=== PATIENT | male | born 1940 | race Caucasian/White ===

== ENCOUNTER 2016-08-08 08:11 | Day surgery (SDC) | payer BC ==
--- NOTE | ~2016-08-08 | EGD ---
EGD REPORT [facility] [address] [address] NAME: CHET ADAM : 36 STATUS : REG [facility]#: [id number] AGE: 76 ADM/REG DATE : 08/08/16 MR#: [id number] REPORT SERV DATE: 08/08/16 DICTATED BY: PRIYANK WALTER DATE: 08/08/16 REPORT STATUS : Draft TRANSCRIBED BY: [facility] DATE: 08/08/16 Endoscopy Center Patient Name: Chet Adam Date of : 1940 Attending MD: PRIYANK WALTER MD Procedure Date No Time: 08/08/2016 Procedure: Upper GI endoscopy Indications: Iron deficiency anemia, hx lymphoma and charles Referring MD: Atif PRICE Medicines: as per anesthesia Complications: No immediate complications. Procedure: After obtaining informed consent, the endoscope was passed under direct vision. Throughout the procedure, the patient's blood pressure, pulse, and oxygen saturations were monitored continuously. The GIF [id number] [id number] was introduced through the mouth, and advanced to the third part of duodenum. The upper GI endoscopy was accomplished without difficulty. The patient tolerated the procedure. Findings: The examined esophagus was normal. Localized mild inflammation characterized by erythema was found in the gastric antrum. Biopsies were taken with a cold forceps for histology. The cardia and gastric fundus were normal on retroflexion. The examined duodenum was normal. Biopsies were taken with a cold forceps for histology. Impression: - Normal esophagus. - Gastritis. Biopsied. - Normal examined duodenum. Biopsied. Recommendation: - Await pathology results. Procedure Code(s): --- Professional --- 60092, Esophagogastroduodenoscopy, flexible, transoral; with biopsy, single or multiple Diagnosis Code(s): --- Professional --- K29.70, Gastritis, unspecified, without bleeding D50.9, Iron deficiency anemia, unspecified CPT copyright 2013 [employer]. All rights reserved. EGD REPORT [facility] [address] [place] [address] [place]. [address] NAME: CHET ADAM : 36 STATUS : REG [facility]#: [id number] AGE: 76 ADM/REG DATE : 08/08/16 MR#: [id number] REPORT SERV DATE: 08/08/16 DICTATED BY: PRIYANK WALTER. DATE: 08/08/16 REPORT STATUS : Draft TRANSCRIBED BY: [employer] DATE: 08/08/16 The codes documented in this report are preliminary and upon debt collector review may be revised to meet current compliance requirements. PRIYANK WALTER MD 08/08/2016 10:46 AM This report has been signed electronically. Number of Addenda: 0 Note Initiated On: 08/08/2016 10:23 AM Scope Withdrawal Time 0 hours 0 minutes 0 seconds [address] [facility] [place] [address]
--- NOTE | ~2016-08-08 | EGD ---
EGD REPORT [facility] [address] [address] NAME: CHET ADAM : 36 STATUS : REG [facility]#: [id number] AGE: 76 ADM/REG DATE : 08/08/16 MR#: [id number] REPORT SERV DATE: 08/08/16 DICTATED BY: PRIYANK WALTER DATE: 08/08/16 REPORT STATUS : Draft TRANSCRIBED BY: [facility] DATE: 08/08/16 Endoscopy Center Patient Name: Chet Adam Date of : 1940 Attending MD: PRIYANK WALTER MD Procedure Date No Time: 08/08/2016 Procedure: Colonoscopy Indications: Iron deficiency anemia, Personal history of malignant neoplasm of the colon, hx lymphoma and charles Referring MD: Atif PRICE Medicines: as per anesthesia Complications: No immediate complications. Procedure: After I obtained informed consent, the scope was passed under direct vision. Throughout the procedure, the patient's blood pressure, pulse, and oxygen saturations were monitored continuously. The PCF [id number] was introduced through the anus and advanced to the ileocolonic anastomosis. The colonoscopy was performed without difficulty. The patient tolerated the procedure. The quality of the bowel preparation was adequate to identify polyps. Findings: The perianal and digital rectal examinations were normal. There was evidence of a prior end-to-side ileo-colonic anastomosis in the transverse colon. This was patent. This was characterized by healthy appearing mucosa. There was evidence of a prior end-to-end colo-colonic anastomosis in the sigmoid colon. This was patent. This was characterized by healthy appearing mucosa. This was traversed. A sessile polyp was found in the transverse colon. The polyp was 3 mm in size. The polyp was removed with a cold biopsy forceps. Resection and retrieval were complete. A few small and large-mouthed diverticula were found in the sigmoid colon. Impression: - Patent end-to-side ileo-colonic anastomosis. - Patent end-to-end colo-colonic anastomosis. - One 3 mm polyp in the transverse colon. Resected and retrieved. - Diverticulosis in the sigmoid colon. Recommendation: - Await pathology results. - Repeat colonoscopy for surveillance based on pathology results. EGD REPORT [address] [address] NAME: CHET ADAM : 38 STATUS : REG [facility]#: [id number] AGE: 76 ADM/REG DATE : 08/08/16 MR#: [id number] REPORT SERV DATE: 08/08/16 DICTATED BY: PRIYANK WALTER DATE: 08/08/16 REPORT STATUS : Draft TRANSCRIBED BY: [employer] DATE: 08/08/16 Procedure Code(s): --- Professional --- 45544, Colonoscopy, flexible, proximal to splenic flexure; with biopsy, single or multiple Diagnosis Code(s): --- Professional --- Z98.0, Intestinal bypass and anastomosis status D12.3, Benign neoplasm of transverse colon K57.30, Diverticulosis of large intestine without perforation or abscess without bleeding D50.9, Iron deficiency anemia, unspecified Z85.038, Personal history of other malignant neoplasm of large intestine CPT copyright 2013 [employer]. All rights reserved. The codes documented in this report are preliminary and upon credit balance specialist review may be revised to meet current compliance requirements. PRIYANK WALTER MD 08/08/2016 11:09 AM This report has been signed electronically. Number of Addenda: 0 Note Initiated On: 08/08/2016 10:20 AM Scope Withdrawal Time 0 hours 0 minutes 0 seconds [id number] [address]
[~2016-08-08 08:11] MED LIST: AMARYL4 PO; ASAB PO; BENTYL10 PO; CIP5 PO; CYANO1000T PO; DIABETA5 PO; ELIQUIS 5 MG TAB5 MG PO; FERROUS SULF325 M1 PO; FOLIC PO; FORTAMET500 MG PO; LEVOTHYROXIN50 MCG PO; LOP25 PO; MTX2.5 PO; NORCO1 TA1 PO; NORCO1 TA2 PO; PRED50B PO; PRILOSEC40 MG PO; ROXICET1 TAB OR; ULTRAM50 PO; VITAMIN D1000 UNI1 PO; Z300 PO; ZOCOR20 PO; ZOCOR40 PO; ZOFRAN8 PO
[2016-10-09] MEDS ORDERED: PRILOSEC40 MG PO (13:31)
== END 2016-08-08 23:59 | disposition home or self-care (01) ==
LOC: DMU 08:11
PROVIDERS: Internal Medicine Gastroenterology
PROC: 0DBL8ZZ Excision of Transverse Colon, Via Natural or Artificial Opening Endoscopic (ICD-10-PCS; 2016-08-08)
PROC: 0DB98ZX Excision of Duodenum, Via Natural or Artificial Opening Endoscopic, Diagnostic (ICD-10-PCS; principal; 2016-08-08 09:00)
PROC: 0DB68ZX Excision of Stomach, Via Natural or Artificial Opening Endoscopic, Diagnostic (ICD-10-PCS; 2016-08-08 09:00)
DX: D12.3 Benign neoplasm of transverse colon (principal); K29.50 Unspecified chronic gastritis without bleeding; K57.30 Diverticulosis of large intestine without perforation or abscess without bleeding; Z98.0 Intestinal bypass and anastomosis status; K57.92 Diverticulitis of intestine, part unspecified, without perforation or abscess without bleeding; K21.9 Gastro-esophageal reflux disease without esophagitis; D50.9 Iron deficiency anemia, unspecified; I10 Essential (primary) hypertension; I48.91 Unspecified atrial fibrillation; I73.9 Peripheral vascular disease, unspecified; E78.00 Pure hypercholesterolemia, unspecified; E11.9 Type 2 diabetes mellitus without complications; E03.9 Hypothyroidism, unspecified; M06.9 Rheumatoid arthritis, unspecified; Z96.652 Presence of left artificial knee joint; Z85.030 Personal history of malignant carcinoid tumor of large intestine; Z86.718 Personal history of other venous thrombosis and embolism; Z85.72 Personal history of non-Hodgkin lymphomas; Z87.891 Personal history of nicotine dependence; Z92.21 Personal history of antineoplastic chemotherapy; Z91.09 Other allergy status, other than to drugs and biological substances; Z89.511 Acquired absence of right leg below knee; Z96.1 Presence of intraocular lens; Z98.41 Cataract extraction status, right eye; Z98.42 Cataract extraction status, left eye; Z79.01 Long term (current) use of anticoagulants; Z79.84 Long term (current) use of oral hypoglycemic drugs; Z79.899 Other long term (current) drug therapy; Z98.890 Other specified postprocedural states
CPT/HCPCS: 82962; 88305

== ENCOUNTER 2016-10-11 07:09 | Inpatient (IN) | payer BC ==
[2016-10-10 09:29] LABS: BASOPHILS 0.2 %; BASOPHILS ABSOLUTE 0.01 10/3/uL (0.0-0.16); EOSINOPHILS 2.3 %; EOSINOPHILS ABSOLUTE 0.12 10/3/uL (0.0-0.53); HEMATOCRIT 30.7 % (40.0-51.0); IMMATURE GRANULOCYTES ABSOLUTE 0.05 10/3/uL (0.0-0.11); LYMPHOCYTES 7.8 %; LYMPHOCYTES ABSOLUTE 0.41 10/3/uL (0.67-4.30); MEAN PLATELET VOLUME 9.1 fL (9.2-13.0); MONOCYTES 4.6 %; MONOCYTES ABSOLUTE 0.24 10/3/uL (0.21-1.20); NEUTROPHILS 84.1 %; NEUTROPHILS ABSOLUTE 4.43 10/3/uL (2.02-8.40); RBC DISTRIBUTION WIDTH 14.7 % (12.0-16.0); RED CELL COUNT 3.69 10/6/uL (4.7-6.1); WHITE BLOOD CELLS 5.3 10/3/uL (4.5-10.5)
[2016-10-10 09:31] LABS: MEAN CORPUS HGB CONC 32.6 g/dL (32.0-36.0); MEAN CORPUSCULAR HEMOGLOB 27.1 pg (26.0-34.0); MEAN CORPUSCULAR VOLUME 83.2 fL (80-100)
[2016-10-10 09:32] LABS: MANUAL DIFF NO %; PLATELET COUNT 168 10/3/uL (150-400)
[2016-10-10 10:02] LABS: ALBUMIN 2.8 G/DL (3.5-5.0); ALKALINE PHOSPHATASE 236 U/L (45-117); BUN (BLOOD UREA NITROGEN) 25 MG/DL (6-23); CALCIUM, SERUM 8.4 MG/DL (8.5-10.4); CHLORIDE, SERUM 108 MMOL/L (96-112); CO2 (CARBON DIOXIDE) 24 MMOL/L (24-34); CREATININE 1.23 MG/DL (0.70-1.30); GFR AFRICAN AMERICAN 65 ML/MIN (>=60); GFR NON AFRICAN AMERICAN 56 ML/MIN (>=60); GLOBULIN 2.7 G/DL (2.5-4.1); GLUCOSE, SERUM 199 MG/DL (60-99); POTASSIUM, SERUM 5.1 MMOL/L (3.5-5.3); SGOT(AST) 22 U/L (5-40); SGPT(ALT) 17 U/L (5-65); SODIUM, SERUM 141 MMOL/L (135-148); TOTAL BILIRUBIN 0.3 MG/DL (0-1.2); TOTAL PROTEIN 5.5 G/DL (6.0-8.5)
--- NOTE | ~2016-10-11 | PREOPHP ---
PreOp History and Physical [address] [place]. 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 The patient complains of intermittent episodes of upper abdominal pain. These symptoms have been ongoing for at least two weeks. He describes nausea, vomiting, and pain in the right upper quadrant pain migrated to the back. 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 The patient comes now for open cholecystectomy. It was felt not to be a candidate for laparoscopic surgery because of the severity of disease and because of the high risk for complications based on this finding radiographically. It has been fully and completely explained to the patient that this is a high risk procedure with high risk for injury to the common bile duct or duodenum or duodenal fistula, which could be fatal. The patient is very symptomatic in terms of nausea and food intolerance and pain. He clearly understands the risks and agrees to surgery as planned. The patient has also had marked increased risk for complications and due to comorbid risk factors including diabetes, cardiac disease, and hypertension. Again, these increased risks have been explained to the patient. He understands and agrees to this as planned. PAST MEDICAL HISTORY: 1. History of T1 N0 M0 right colon cancer, status post open right colectomy performed 10/29/2013. 2. History of diverticulitis in the past. 3. 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 4. History of right lower extremity sarcoma. 5. History of right AKA. 6. History deep venous thrombosis of the left lower extremity. 7. Hypertension. 8. Non-insulin dependent diabetes mellitus. 9. Atrial flutter. ALLERGIES: NONE. MEDICATIONS: Eliquis, levothyroxine, metformin, metoprolol, simvastatin, Prilosec. SOCIAL HISTORY: The patient lives in [place], [place]. He is retired. He is . He has a previous history of tobacco abuse for 20 years. He has a history of alcohol use. FAMILY HISTORY: Positive for diabetes and cancer. REVIEW OF SYSTEMS: The patient complains of nausea, vomiting, easy bruising and weight loss and urinary incontinence. He also complains of cough and shortness of breath. He has a pulmonary cavitary lesion of concern for malignancy and workup regarding this is pending. PHYSICAL EXAMINATION: GENERAL: This is a chronically ill-appearing male, in no acute distress. He is alert PreOp History and Physical [address] [address] NAME: CHET PARRA : 38 STATUS : PRE IN [facility]#: [id number] AGE: 76 ADM/REG DATE : MR#: [id number] REPORT SERV DATE: 10/11/16 DICTATED BY: ATIF MAYNARD III DATE: 10/07/16 REPORT STATUS : Draft TRANSCRIBED BY: SUJIT DATE: 10/07/16 oriented x3. VITAL SIGNS: Blood pressure 125/77, pulse 87, temperature 97.3. HEENT: Unremarkable. Cranial nerves 2 through 12 are normal. LUNGS: Clear. CARDIAC: Normal. ABDOMEN: Soft with a prior right subcostal and midline incision. Exam is otherwise unremarkable. EXTREMITIES: Remarkable for right above knee amputation. LABORATORY DATA: CT scan of the abdomen shows the gallbladder to be multi-septated and dilated and inseparable from the second portion duodenal which is diffusely thickened. There is noted to be a previously calcified gallstone in the gallbladder lumen seen in 05/2016, which now lies in the second portion duodenal suggesting a fistula. The findings are suspicious for Mirizzi syndrome with the gallbladder eroding into the second portion of the duodenum. There is noted to be inflammatory stranding in the second portion of the duodenum and Morison pouch. There is noted to be a small amount of free fluid in the perihepatic space and Morison pouch. Previous right hemicolectomy with ileocolonic anastomosis was noted. These findings were all concern for Mirizzi syndrome without small- bowel obstruction or biliary obstruction. ASSESSMENT: 1. 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 2. History of tobacco abuse. 3. Probable primary lung cancer, workup pending. 4. Hypertension. 5. Non-insulin dependent diabetes mellitus. 6. Atrial flutter requiring anticoagulation. 7. History of deep venous thrombosis of the left lower extremity. 8. 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 9. History of a previous right colon cancer, status post previous open right colectomy. 10.History of diverticulitis. 11.History of lymphoma, which the patient has received chemotherapy. 12.Chronic anticoagulation for atrial fibrillation and deep venous thrombosis. PLAN: The patient comes to the operating room now for open cholecystectomy. It was felt that a laparoscopic procedure could not be safely performed and is clearly not indicated. Regarding the procedure, open cholecystectomy with repair of the duodenal fistula, the risks, benefits, and alternatives, including but not limited to the risk for bleeding, infection, common bile duct injury, bile leak, retained common bile stone, persistent duodenal fistula, recurrence of the fistula, and possible need for small bowel anastomosis to the duodenum and unforeseen complications including deep venous thrombosis, pulmonary embolus, myocardial infarction, stroke, pneumonia, anesthetic complications, prolonged ventilator dependency, and , have been fully and completely the patient's family at PreOp History and Physical [address] [address] NAME: CHET PARRA : 36 STATUS : PRE IN [facility]#: [id number] AGE: 76 ADM/REG DATE : MR#: [id number] REPORT SERV DATE: 10/11/16 DICTATED BY: ATIF MAYNARD III DATE: 10/07/16 REPORT STATUS : Draft TRANSCRIBED BY: MODL DATE: 10/07/16 length prior to surgery. The fact that this is a major operation with high risk for morbidity and mortality in this setting has been explained. The fact that this procedure will be extremely difficult technically because of the presence of a cholecystoduodenal fistula and because of inflammatory changes around the duodenum which may make closure of the duodenum difficult if not possible with high risk for leakage or anastomotic leak has been explained. Due to the patient's multiple medical problems and frail condition, possible increased risk for complications and have been fully and completely explained to the patient family at length. The option of nonoperative management offered to the patient. The patient but declined because of the severity of his symptoms. The fact that he will be at increased risk for thromboembolic complications while his Eliquis is held perioperatively has been explained as well as increased risk of bleeding because used this medication. The patient's questions have been answered. He clearly and fully understands the risks and agrees to surgery as planned. RHJ/MODL Atif Maynard III, M.D. / [id number]
--- NOTE | ~2016-10-11 | CN ---
Consultation Report [facility] [address] [place]. [address] NAME: CHET ADAM : 38 STATUS : ADM IN PAT#: [id number] AGE: 76 ADM/REG DATE : 10/11/16 MR#: [id number] REPORT SERV DATE: 10/15/16 DICTATED BY: TI CAMPBELL DATE: 10/15/16 REPORT STATUS : Draft TRANSCRIBED BY: MODL DATE: 10/15/16 INPATIENT CONSULTATION NOTE DATE OF CONSULTATION: 10/15/2016 REASON FOR CONSULTATION: Dysuria and frequency. HISTORY OF PRESENT ILLNESS: Mr. Adam is a 76-year-old white male, who has seen Dr. Wei Mcguire with [facility] in the past with a somewhat complicated past urologic history. 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 Additionally, he has BPH and has been treated with Flomax by his primary care physician for some time. He was admitted for cholelithiasis. A cholecystectomy could not be performed and he had a T-tube and PLACIDO placed instead. He had an intraoperative Garcia catheter placed on 10/11/2016, which has since been removed. Since that time, the patient developed dysuria and urinary frequency as well as every 15-30 minute nocturia, which is radically different from his pre-admission status. His home Flomax has not been restarted while he has been in the hospital. He denies any hematuria or pneumaturia at this time. Urology was consulted to assist with the management of this patient. PAST MEDICAL HISTORY: B-cell non-Hodgkin's lymphoma, atrial flutter, carotid artery disease, type 2 diabetes, hypertension, hypothyroidism, Kaposi sarcoma, mitral valve stenosis, and mixed hyperlipidemia. PAST SURGICAL HISTORY: As noted above. SOCIAL HISTORY: He does not smoke, drink alcohol, or use illicit drugs. ALLERGIES: ADHESIVE TAPE. HOME MEDICATIONS: Dicyclomine, Eliquis, levothyroxine, metformin, metoprolol, simvastatin, vitamin B12, and Flomax. REVIEW OF SYSTEMS: Thorough 13-point review of systems was performed by me, and if not noted be positive in the history of present illness or past medical history, are negative. PHYSICAL EXAMINATION: GENERAL: A well-appearing gentleman, in no distress. VITAL SIGNS: He is afebrile. Vital signs are stable. HEENT: Normocephalic, atraumatic. Eyes are anicteric. Nares are patent. Oropharynx is clear. NECK: Supple. Consultation Report [place] [address] [address] NAME: CHET ADAM : 38 STATUS : ADM IN [facility]#: [id number] AGE: 76 ADM/REG DATE : 10/11/16 MR#: [id number] REPORT SERV DATE: 10/15/16 DICTATED BY: TI CAMPBELL DATE: 10/15/16 REPORT STATUS : Draft TRANSCRIBED BY: SUJIT DATE: 10/15/16 HEART: Regular rate and rhythm. LUNGS: Clear. ABDOMEN: Soft. He has a T-tube and a PLACIDO draining appropriately. The abdomen is appropriately tender with no involuntary guarding or rebound. GENITOURINARY: Uncircumcised phallus. Glans clean. Meatus open. No masses on the shaft. Testicles descended bilaterally. No masses. Spermatic cord contents normal. Scrotal skin normal. INTEGUMENT: No rashes. MUSCULOSKELETAL: He has a right AKA. NEUROLOGIC: No focal deficits. PSYCHIATRIC: Pleasant and appropriate. LABS: Creatinine 0.89 on 10/12/2016. ASSESSMENT: A 76-year-old white gentleman with dysuria, frequency, and BPH. PLAN: I want to go ahead and send his urine for urinalysis, and culture and sensitivity. He is currently on Ancef since surgery. I will have the nursing staff obtain a bladder scan postvoid residual after his next void. Additionally, I am going to restart his Flomax. We will follow him closely. Dr. Mcguire will be back in the morning. My thanks to Dr. Cali for allowing me to participate in Mr. Adam' care. RAC/MODL Ti Campbell M.D. / [id number] CC: Atif Cali III, M.D. Atif Fallon MD
--- NOTE | ~2016-10-11 | DS ---
Discharge Summary [facility] [address] [place]. [address] NAME: CHET PARRA : 36 STATUS : DIS IN PAT#: [id number] AGE: 76 ADM/REG DATE : 10/11/16 MR#: [id number] REPORT SERV DATE: 10/26/16 DICTATED BY: LEONARD MAYNARD III DATE: 10/25/16 REPORT STATUS : Draft TRANSCRIBED BY: SUJIT DATE: 10/25/16 Data Collection from hospitalization DISCHARGE DIAGNOSES: 1. 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 2. Possible periduodenal malignancy associated with Mirizzi syndrome. 3. Cholecystoduodenal fistula - unresectable. 4. Enc-tzrigmo-ulqtevgql diabetes mellitus. 5. Hypertension. 6. History of colon cancer. 7. History of diverticulitis. 8. History of lymphoma of the spleen. 9. History of right lower extremity sarcoma. 10.History of right yhefc-scb-qdhd amputation. 11.Atrial flutter. 12.Former tobacco use. CONSULTATIONS: Trey Cavanaugh M.D. PROCEDURES PERFORMED: 1. Laparotomy, extensive lysis of adhesions and placement of cholecystostomy tube on 10/11/2016. 2. T-Tube cholangiogram on 10/13/2016. 3. CT-guided biopsy of right upper lobe lesion on 10/16/2016. PATHOLOGY: Lung, right upper lobe mass, CT-guided biopsy - high-grade large B-cell lymphoma, non-germinal center type (see comments). MEDICATIONS: Eliquis 5 mg twice a day, Bentyl 10 mg daily, Kincaid 7.5/325 one tablet every four hours as needed, levothyroxine 50 mcg every morning, Fortamet 500 mg every morning and 1000 mg with supper, Lopressor 25 mg daily, Prilosec 40 mg daily, Percocet 7.5/325 one tablet three times a day as needed, and Zocor 20 mg at bedtime. CONDITION AT DISCHARGE: Stable. DISPOSITION: The patient was discharged home on a low-cholesterol, 1800-calorie diabetic diet and no concentrated carbohydrates and activities as instructed. He would follow up with me on 10/25/2016. He would follow up with Dr. Wei Mcguire Jr., as instructed. 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 There was noted to be marked inflammatory process in the right upper quadrant. There appeared to be a stone within the lumen of the duodenum. The patient had several previous surgeries including right colectomy performed through a large open right subcostal incision. The patient has a history of sarcoma of the lower extremity requiring amputation and a history of lymphoma. Discharge Summary [place] [address] [place]. [address] NAME: CHET PARRA : 38 STATUS : DIS IN PAT#: [id number] AGE: 76 ADM/REG DATE : 10/11/16 MR#: [id number] REPORT SERV DATE: 10/26/16 DICTATED BY: LEONARD MAYNARD III DATE: 10/25/16 REPORT STATUS : Draft TRANSCRIBED BY: SUJIT DATE: 10/25/16 In addition, he had a recently discovered pulmonary mass of concern for malignancy. It was felt that open cholecystectomy with repair of the duodenal fistula was indicated. Treatment options were discussed and it was elected to proceed with surgical intervention. He was admitted to the hospital at this time for further evaluation and treatment. Upon admission, he was taken to the operating room where he underwent the above-mentioned procedure. He tolerated this well, and there were no complications. On postop day #1, he had no new complaints. He was alert and comfortable. The Garcia catheter was going to be removed. Full liquids were started. He was evaluated by Physical Therapy. On 10/13/2016, he said he was feeling better. He was afebrile. T-tube cholangiogram was performed. There was a small amount of contrast extravasating from the posterior lateral aspect of the gallbladder, and this did not appear to communicate with the other structures. The biliary tree was normal. On 10/14/2016, he had no new complaints. His diet was going to be advanced. IV fluids were stopped. The patient has a right upper lobe lesion, and it was felt that he should undergo a CT-guided biopsy. The following day, he was seen by Dr. Trey Cavanaugh regarding dysuria and frequency. A cholecystectomy could not be performed and he had T-tube and PLACIDO placed instead and intraoperative Garcia catheter was placed on 10/11/2016, which had since been removed. Since that time, the patient developed dysuria and urinary frequency as well as every 15- to 30-minute nocturia, which was radically different from his preadmission status. His Flomax had not been restarted while he was in the hospital. Urine was going to be sent for urinalysis, culture, and sensitivity. He was currently on Ancef since surgery. The nursing staff was going to obtain a bladder scan, postvoid residual after his next void, additionally Flomax would be restarted. Discharge planning was performed. On 10/16/2016, he felt well and wanted to go home. He was eating well. He underwent CT-guided biopsy of the right upper lobe lesion. This was malignant appearing. Discharge instructions were given. Due to his improved and stable condition, he was discharged home with the above- stated instructions. Information collected by: Patti Artis I submit the above information as my discharge summary. TG/SUJIT Leonard Maynard III, M.D. / [id number] CC: Amy Lloyd III, MD Ross A. Cohn, M.D.
--- NOTE | ~2016-10-11 | OP ---
Record Of Operation [facility] [address] [place]. 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 PROCEDURE: Laparotomy, extensive lysis of adhesions, placement of cholecystostomy tube. SURGEON: Leonard Maynard M.D. ANESTHESIA: General with intubation. COMPLICATIONS: None. ESTIMATED BLOOD LOSS: 100 mL. SPECIMENS: None. DRAINS: Cholecystostomy tube and Glenn-Mckenzie in the right upper quadrant and [place] in subcutaneous tissue. LAP AND SPONGE COUNT: Correct x3. 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 There is noted to be marked inflammatory process in the right upper quadrant. There appeared to be a stone within the lumen of the duodenum. The patient had several previous surgeries including right colectomy performed through a large open right subcostal incision. 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 In addition, he had a recently discovered pulmonary mass of concern for malignancy. It was felt that open cholecystectomy with repair of the duodenal fistula is indicated. I have explained to the patient and family at length that this would be a major operation with high risk for morbidity and mortality. The risk for bleeding, infection, enterotomy, injury to any abdominal structure, postop small bowel obstruction, ileus, incisional hernia or dehiscence, anastomotic leak, recurrence of the fistula or breakdown of the fistula repair, common bile duct injury, pancreatic injury, and unforeseen complications including deep venous thrombosis, pulmonary embolus, myocardial infarction, stroke, pneumonia, and , were fully and completely explained to the patient's family at length prior to surgery. The fact that this was a major operation with risk for major morbidity and mortality has been explained. The expected length of recovery was explained. The patient and family had Record Of Operation [facility] [address] [place]. [address] NAME: CHET PARRA : 38 STATUS : ADM IN PAT#: [id number] AGE: 76 ADM/REG DATE : 10/11/16 MR#: [id number] REPORT SERV DATE: 10/11/16 DICTATED BY: LEONARD MAYNARD III DATE: 10/11/16 REPORT STATUS : Draft TRANSCRIBED BY: SUJIT DATE: 10/11/16 questions which were answered. They understood the risks and agree to the surgery as planned. Based on the patient's prior surgery findings on CT scan the presence of a cholecystoduodenal fistula, I explained that I do not feel this could be performed safely laparoscopically. The patient and family had questions which were answered. They fully understood the risks and agree to surgery as planned. FINDINGS: The patient had a severe dense inflammatory process in the right upper quadrant. There was extensive edema around the gallbladder which was engulfed with adhesions to the omentum and to the duodenum. In the portal region, there was a firmness and hardness and not a discrete mass. This was of concern for possible posterior duodenal cancer or biliary cancer. There was extensive scarring in the area from the previous colectomy, entry into the area and definition of the structures are extremely difficult. We could not easily identify or define the portal structures. For this reason, it was my judgment that it was not safe to proceed with cholecystectomy and therefore, cholecystostomy tube was placed. I made this incision in light of the fact that the patient has a pulmonary mass which is in need of workup and which may be a life-limiting event for him. I felt that proceeding with attempt to removal of the gallbladder put place the patient at high risk for common bile duct injury requiring major reconstruction or possibly a duodenal fistula which might require major reconstruction. Based on these findings and considerations, given the fact that the patient had unworked up pulmonary mass most likely malignant, it was felt that cholecystostomy tube would temporize the patient in terms of infection and allow for interval cholecystectomy later, depending on his prognosis regarding the pulmonary mass. DESCRIPTION OF PROCEDURE: After being appropriately identified and after discussing risks of surgery with the patient and family again in the preoperative area, he was taken to the operating room and placed in the supine position on the operating room table. General anesthesia was administered and he was intubated without difficulty. A Garcia catheter was inserted. The abdomen was prepped and draped sterilely in usual fashion. After an appropriate "time-out" per JCAHO standards, a right subcostal incision was made about 2 cm below the costal margin, over the previous incision. The incision was continued through the subcutaneous tissue. The patient had marked bleeding and oozing from all of his tissues, apparently related to his anticoagulation. The incision was continued through the fascia. Hemostasis control with electrocautery was difficult secondary to marked oozing. We entered the abdominal cavity. There were dense adhesions between the omentum and the underside of the abdominal wall from the patient's previous surgery. It took a considerable amount of careful dissection to free up these adhesions so as to enter the right upper quadrant. There was an inflammatory process ongoing in the right upper quadrant with the initial structures extremely difficult to define and identify. The gallbladder was small and fibrotic and chronically inflamed. The omentum was densely adherent to it. The entire portal region was markedly distorted secondary to an inflammatory process. There was extensive edema in the portal tissues and a firmness and hardness in the duodenum. Using sharp dissection, the adhesions in the right upper quadrant were carefully divided. The gallbladder was exposed. The gallbladder chand were again thickened and chronically inflamed. We passed a 21-gauge needle into the gallbladder lumen and aspirated bile. This was done to be certain that this was the gallbladder. The structures and anatomy were extremely difficult to define because of the inflammatory changes and because the patient's previous surgery. Record Of Operation [facility] [address] [facility] [place]. [address] NAME: CHET PARRA : 38 STATUS : ADM IN PAT#: [id number] AGE: 76 ADM/REG DATE : 10/11/16 MR#: [id number] REPORT SERV DATE: 10/11/16 DICTATED BY: LEONARD MAYNARD III DATE: 10/11/16 REPORT STATUS : Draft TRANSCRIBED BY: MODL DATE: 10/11/16 Using sharp dissection, peritoneal reflection to the duodenum was divided along the line of [place]. Even doing this was very difficult secondary to marked firmness and edema of the tissues. There was a feeling of firmness and hardness in the retroperitoneum posterior to the second portion of the duodenum. This was not a discrete mass but rather hardness of concern for possible malignancy versus a chronic inflammatory process. We dissected from the top of the gallbladder down towards the portal region. This region in the chloe hepatis was extremely hard and fixed and firm. The portal region of the lower portion of the gallbladder, common bile duct, and duodenum were all fixed in one inflammatory mass. It was extremely difficult to define these structures and to proceed safely. It was my judgment that it would not be safe to proceed safely, both because of the concern about the possibility of malignancy in the duodenal area and because of the risk of injury to the common bile duct or duodenum which could require major reconstruction. Based on this, the fact that the patient had an undiagnosed pulmonary mass, which was likely malignant, it was my judgment that it would be safest to proceed with placement of a cholecystostomy tube for temporizing. Then, depending on the patient's prognosis regarding his pulmonary malignancy, he could return later for an interval cholecystectomy. For this reason, a 12-[place] pediatric Garcia catheter was brought through a separate stab wound to the right of the incision. A 3-0 silk pursestring was placed around the anterior aspect of the body of the gallbladder. A small opening was made in the center of the pursestring and the Garcia catheter was passed through this. The balloon was inflated. The pursestring was secured. Bile was aspirated. The area was irrigated copiously with saline. Hemostasis was assured. A Glenn-Mckenzie drain was brought through a separate stab wound lateral to the incision and placed near the gallbladder. Hemostasis was assured. It was assured that the pursestring had been secured and there was no leakage or extravasation of bile from the cholecystostomy tube. Hemostasis was assured. The fascia was closed with a running looped #1 PDS suture. The subcutaneous tissue was closed with a running 3-0 chromic suture over a Tarah drain which was brought through the lateral aspect of the incision. The skin was closed with a running subcuticular 4-0 Monocryl stitch. Dressings were applied. Anesthesia was reversed. The patient was taken to the recovery room in stable condition. He tolerated the procedure well. His family was informed results of surgery. We will arrange for postoperative cholecystogram as well as a needle biopsy of this pulmonary mass. The patient tolerated the procedure well and stable at this time in the recovery room. ANGELICA/SUJIT Leonard Maynard III, M.D. / [id number] Record Of Operation [address] [address] NAME: CHET PARRA : 38 STATUS : ADM IN [facility]#: [id number] AGE: 76 ADM/REG DATE : 10/11/16 MR#: [id number] REPORT SERV DATE: 10/11/16 DICTATED BY: LEONARD MAYNARD III DATE: 10/11/16 REPORT STATUS : Draft TRANSCRIBED BY: SUJIT DATE: 10/11/16 CC: Amy Lloyd III, M.D.
[2016-10-12 05:51] LABS: BASOPHILS 0.1 %; BASOPHILS ABSOLUTE 0.01 10/3/uL (0.0-0.16); EOSINOPHILS 1.3 %; EOSINOPHILS ABSOLUTE 0.14 10/3/uL (0.0-0.53); HEMATOCRIT 28.8 % (40.0-51.0); HEMOGLOBIN 9.3 g/dL (13.6-17.8); IMMATURE GRANULOCYTES 0.7 %; IMMATURE GRANULOCYTES ABSOLUTE 0.07 10/3/uL (0.0-0.11); LYMPHOCYTES 4.7 %; LYMPHOCYTES ABSOLUTE 0.49 10/3/uL (0.67-4.30); MEAN CORPUS HGB CONC 32.3 g/dL (32.0-36.0); MEAN CORPUSCULAR HEMOGLOB 26.6 pg (26.0-34.0); MEAN CORPUSCULAR VOLUME 82.5 fL (80-100); MEAN PLATELET VOLUME 8.7 fL (9.2-13.0); MONOCYTES ABSOLUTE 0.73 10/3/uL (0.21-1.20); NEUTROPHILS 86.2 %; NEUTROPHILS ABSOLUTE 9.04 10/3/uL (2.02-8.40); PLATELET COUNT 166 10/3/uL (150-400); RED CELL COUNT 3.49 10/6/uL (4.7-6.1)
[2016-10-12 06:02] LABS: MANUAL DIFF NO %; WHITE BLOOD CELLS 10.5 10/3/uL (4.5-10.5)
[2016-10-12 06:09] LABS: ALBUMIN 2.5 G/DL (3.5-5.0); CHLORIDE, SERUM 108 MMOL/L (96-112); CO2 (CARBON DIOXIDE) 23 MMOL/L (24-34); CREATININE 0.98 MG/DL (0.70-1.30); GFR AFRICAN AMERICAN 85 ML/MIN (>=60); GFR NON AFRICAN AMERICAN 74 ML/MIN (>=60); GLOBULIN 2.5 G/DL (2.5-4.1); GLUCOSE, SERUM 187 MG/DL (60-99); POTASSIUM, SERUM 4.8 MMOL/L (3.5-5.3); SGOT(AST) 11 U/L (5-40); SGPT(ALT) 13 U/L (5-65); SODIUM, SERUM 139 MMOL/L (135-148); TOTAL BILIRUBIN 0.4 MG/DL (0-1.2)
[2016-10-12 06:13] LABS: BUN (BLOOD UREA NITROGEN) 15 MG/DL (6-23)
[2016-10-12 06:14] LABS: ALKALINE PHOSPHATASE 168 U/L (45-117)
[2016-10-12 06:17] LABS: CALCIUM, SERUM 7.7 MG/DL (8.5-10.4)
[2016-10-13 06:39] LABS: BASOPHILS 0.1 %; BASOPHILS ABSOLUTE 0.01 10/3/uL (0.0-0.16); EOSINOPHILS ABSOLUTE 0.15 10/3/uL (0.0-0.53); HEMOGLOBIN 8.6 g/dL (13.6-17.8); IMMATURE GRANULOCYTES 0.3 %; IMMATURE GRANULOCYTES ABSOLUTE 0.02 10/3/uL (0.0-0.11); LYMPHOCYTES 6.4 %; LYMPHOCYTES ABSOLUTE 0.48 10/3/uL (0.67-4.30); MEAN CORPUS HGB CONC 33.5 g/dL (32.0-36.0); MEAN CORPUSCULAR HEMOGLOB 26.7 pg (26.0-34.0); MEAN PLATELET VOLUME 8.8 fL (9.2-13.0); MONOCYTES 6.5 %; MONOCYTES ABSOLUTE 0.49 10/3/uL (0.21-1.20); NEUTROPHILS 84.7 %; NEUTROPHILS ABSOLUTE 6.35 10/3/uL (2.02-8.40); RBC DISTRIBUTION WIDTH 15.3 % (12.0-16.0); RED CELL COUNT 3.22 10/6/uL (4.7-6.1); WHITE BLOOD CELLS 7.5 10/3/uL (4.5-10.5)
[2016-10-13 06:42] LABS: INTERNATIONAL NORMAL RATI 1.3 UNITS (-); PROTIME (NOT ORD) 15.9 SEC (12.0-14.5)
[2016-10-13 06:43] LABS: PARTIAL THROMBO TIME 38.7 SEC (22.5-37.2)
[2016-10-13 06:45] LABS: HEMATOCRIT 25.7 % (40.0-51.0); MANUAL DIFF NO %; MEAN CORPUSCULAR VOLUME 79.8 fL (80-100); PLATELET COUNT 108 10/3/uL (150-400)
[2016-10-13 06:52] LABS: A/G RATIO 0.9 (0.7-1.9); ALBUMIN 2.3 G/DL (3.5-5.0); ALKALINE PHOSPHATASE 141 U/L (45-117); BUN (BLOOD UREA NITROGEN) 9 MG/DL (6-23); CALCIUM, SERUM 7.9 MG/DL (8.5-10.4); CHLORIDE, SERUM 105 MMOL/L (96-112); CO2 (CARBON DIOXIDE) 24 MMOL/L (24-34); CREATININE 0.85 MG/DL (0.70-1.30); GFR AFRICAN AMERICAN 97 ML/MIN (>=60); GFR NON AFRICAN AMERICAN 83 ML/MIN (>=60); GLOBULIN 2.5 G/DL (2.5-4.1); GLUCOSE, SERUM 228 MG/DL (60-99); SGOT(AST) 8 U/L (5-40); SGPT(ALT) 9 U/L (5-65); SODIUM, SERUM 135 MMOL/L (135-148); TOTAL BILIRUBIN 0.4 MG/DL (0-1.2); TOTAL PROTEIN 4.8 G/DL (6.0-8.5)
[2016-10-14 05:16] LABS: BASOPHILS 0.2 %; BASOPHILS ABSOLUTE 0.01 10/3/uL (0.0-0.16); EOSINOPHILS 1.6 %; EOSINOPHILS ABSOLUTE 0.09 10/3/uL (0.0-0.53); HEMATOCRIT 25.7 % (40.0-51.0); HEMOGLOBIN 8.5 g/dL (13.6-17.8); IMMATURE GRANULOCYTES 0.5 %; IMMATURE GRANULOCYTES ABSOLUTE 0.03 10/3/uL (0.0-0.11); LYMPHOCYTES 7.7 %; LYMPHOCYTES ABSOLUTE 0.44 10/3/uL (0.67-4.30); MEAN CORPUS HGB CONC 33.1 g/dL (32.0-36.0); MEAN CORPUSCULAR HEMOGLOB 26.8 pg (26.0-34.0); MEAN CORPUSCULAR VOLUME 81.1 fL (80-100); MEAN PLATELET VOLUME 8.9 fL (9.2-13.0); MONOCYTES 6.9 %; MONOCYTES ABSOLUTE 0.39 10/3/uL (0.21-1.20); NEUTROPHILS 83.1 %; NEUTROPHILS ABSOLUTE 4.73 10/3/uL (2.02-8.40); PLATELET COUNT 103 10/3/uL (150-400); RBC DISTRIBUTION WIDTH 15.1 % (12.0-16.0); RED CELL COUNT 3.17 10/6/uL (4.7-6.1); WHITE BLOOD CELLS 5.7 10/3/uL (4.5-10.5)
[2016-10-14 05:20] LABS: MANUAL DIFF NO %
[2016-10-14 05:31] LABS: BUN (BLOOD UREA NITROGEN) 9 MG/DL (6-23); CALCIUM, SERUM 7.9 MG/DL (8.5-10.4); CHLORIDE, SERUM 105 MMOL/L (96-112); CO2 (CARBON DIOXIDE) 25 MMOL/L (24-34); GFR AFRICAN AMERICAN 99 ML/MIN (>=60); GFR NON AFRICAN AMERICAN 86 ML/MIN (>=60); GLUCOSE, SERUM 184 MG/DL (60-99); POTASSIUM, SERUM 4.9 MMOL/L (3.5-5.3); SODIUM, SERUM 136 MMOL/L (135-148)
[2016-10-15 09:49] LABS: ASCORBIC ACID (UR NOT ORDER) NEG (NEG); BILIRUBIN, URINE NEGATIVE (NEG); KETONE, URINE NEGATIVE (NEG); LEUKOCYTE ESTERASE(NOT OR NEG (NEG); WBC (NOT ORDERED) (RFLEX) 3 (0-5)
[2016-10-16] MEDS ORDERED: PERCOCET 7.5/321 TAB PO (09:10)
== END 2016-10-16 15:40 | disposition home or self-care (01) | DRG 409 ==
LOC: SDC/OF 07:09 → PACU 11:46 → 5SO 13:33
PROVIDERS: Student in an Organized Health Care Education/Training Program; Surgery
PROC: 0DNS0ZZ (ICD-10-PCS; 2016-10-11)
PROC: 0DN50ZZ Release Esophagus, Open Approach (ICD-10-PCS; 2016-10-11)
PROC: 0F9400Z Drainage of Gallbladder with Drainage Device, Open Approach (ICD-10-PCS; principal; 2016-10-11 09:15)
PROC: 0BBC3ZX Excision of Right Upper Lung Lobe, Percutaneous Approach, Diagnostic (ICD-10-PCS; 2016-10-16)
DX: K80.01 Calculus of gallbladder with acute cholecystitis with obstruction (principal); C34.11 Malignant neoplasm of upper lobe, right bronchus or lung; K82.3 Fistula of gallbladder; K80.65 Calculus of gallbladder and bile duct with chronic cholecystitis with obstruction; I10 Essential (primary) hypertension; E11.9 Type 2 diabetes mellitus without complications; Z89.611 Acquired absence of right leg above knee; Z86.718 Personal history of other venous thrombosis and embolism; Z79.899 Other long term (current) drug therapy; Z87.891 Personal history of nicotine dependence; Z83.3 Family history of diabetes mellitus; Z82.49 Family history of ischemic heart disease and other diseases of the circulatory system
CPT/HCPCS: 32405; 36415; 47531; 71010; 77012; 80048; 80053; 81001; 82962; 85025; 85610; 85730; 86850; 86900; 86901; 86920; 87070; 87075; 87205; 88305; 88333; 88341; 88342; 88360; 88367; 93005; 97110-GP; 97116-GP; 97162-GP; A9270-GY; C9113; J0690; J1885; J2250; J2270; J2370; J2405; J2710; J2795; J3010; Q9967